=== PATIENT | female | born 1950 | race Caucasian/White ===

== ENCOUNTER 2021-10-24 17:05 | Emergency (ER) | payer MEDICARE, OTHER ==
[2021-10-24 18:59] LABS: BASO # 0.1 10*3/uL (0.0-0.1); BASO % 0.8 % (0.0-1.0); EOS # 0.2 10*3/uL (0.0-0.4); EOS % 2.4 % (1.0-4.0); HEMATOCRIT 40.9 % (37.0-47.0); LYMPH # 2.4 10*3/uL (1.3-4.4); LYMPH % 30.1 % (27.0-41.0); MEAN CORPUSCULAR HGB 29.7 pg (27.0-31.0); MEAN CORPUSCULAR HGB CONC 31.5 g/dl (33.0-37.0); MEAN PLATELET VOLUME 10.3 fl (9.6-12.3); MONO # 0.5 10*3/uL (0.1-1.0); MONO % 5.9 % (3.0-9.0); NEUT # 4.8 10*3/uL (2.3-7.9); NEUT % 60.5 % (47.0-73.0); PLATELET COUNT AUTOMATED 283 10*3/uL (130-400); RED BLOOD COUNT 4.35 10*6/uL (4.10-5.10); RED CELL DISTRI WIDTH 14.1 % (0-14.5)
[2021-10-24 19:12] LABS: ACT PARTIAL THROMBO TIME 24.9 SECONDS (20.0-32.1); INTERNATIONAL NORM RATIO 0.9 (2.0-3.5)
[2021-10-24 19:26] LABS: ALKALINE PHOSPHATASE 101 U/L (45-117); BUN 33 mg/dl (7-24); CHLORIDE 113 mmol/L (98-107); CREATININE 2.21 mg/dL (0.55-1.02); LIPASE 468 U/L (73-393); POTASSIUM 4.2 mmol/L (3.5-5.1); SGOT/AST 19 IU/L (3-35); SGPT/ALT 24 U/L (12-78); SODIUM 143 mmol/L (136-145); TOTAL PROTEIN 7.8 gm/dL (6.4-8.2)
[2021-10-24 19:27] LABS: ETHYL ALCOHOL < 3.0 mg/dl (<3)
[2021-10-24 20:46] LABS: BILIRUBIN Negative (Negative); BLOOD Negative (Negative); CLARITY Clear (Clear); COLOR Yellow (Yellow); GLUCOSE Negative (Negative); KETONE Negative (Negative); LEUKO ESTERASE Negative (Negative); NITRITE Negative (Negative); SPECIFIC GRAVITY <= 1.005 (1.001-1.030); UROBILINOGEN 0.2 E.U./dl (0.0-1.0)
[2021-10-24 20:55] LABS: URINE AMPHETAMINES < 1000 (1000ng/ml); URINE BARBITURATES < 200 (200ng/ml); URINE BENZODIAZEPINES < 200 (200ng/ml); URINE CANNABINOIDS (THC) < 50 (50ng/ml); URINE COCAINE < 300 (300ng/ml); URINE METHADONE < 300 (300ng/ml); URINE OPIATES < 300 (300ng/ml)
[2021-10-24 20:56] LABS: URINE PHENCYCLIDINE < 25 (25ng/ml)
[2021-10-24] MEDS ORDERED: ANUSOL-HC25 MG R (20:57)
[2021-10-24] MEDS ORDERED: ABILIFY5 MG PO (20:58)
[2021-10-24] MEDS ORDERED: LAMICTAL100 MG PO (20:58)
[2021-10-24] MEDS ORDERED: LEVOTHYROXINE25 MCG PO (21:00)
[2021-10-24] MEDS ORDERED: MIRALAX17 GM PO (21:01)
[2021-10-24] MEDS ORDERED: MELATONIN5 M7 PO (21:01)
[2021-10-24] MEDS ORDERED: REMERON15 M2 PO (21:01)
[2021-10-24] MEDS ORDERED: SENNA-S 8.6-501 EACH PO (21:02)
[2021-10-24] MEDS ORDERED: TOPAMAX25 M3 PO (21:03)
[2021-10-24 21:04] LABS: BACTERIA TRACE; EPITHELIAL CELLS 0-2; WBC 0-2 wbc/hpf (0-5)
== END 2021-10-24 21:04 | disposition admitted as inpatient to this hospital (09) ==
LOC: ED 17:05
PROVIDERS: Emergency Medicine
DX: F03.90 Unspecified dementia, unspecified severity, without behavioral disturbance, psychotic disturbance, mood disturbance, and anxiety (principal); Z20.822 Contact with and (suspected) exposure to COVID-19; R45.1 Restlessness and agitation; Z88.0 Allergy status to penicillin

== ENCOUNTER 2021-10-24 18:40 | Inpatient (IN) | payer MEDICARE, OTHER ==
[~2021-10-24] VITALS: Ht 157.4 cm; Wt 36.0 kg
[2021-10-24] MEDS ORDERED: ANUSOL-HC25 MG R (20:57)
[2021-10-24] MEDS ORDERED: ABILIFY5 MG PO (20:58)
[2021-10-24] MEDS ORDERED: LAMICTAL100 MG PO (20:58)
[2021-10-24] MEDS ORDERED: LEVOTHYROXINE25 MCG PO (21:00)
[2021-10-24] MEDS ORDERED: REMERON15 M2 PO (21:01)
[2021-10-24] MEDS ORDERED: MIRALAX17 GM PO (21:01)
[2021-10-24] MEDS ORDERED: MELATONIN5 M7 PO (21:01)
[2021-10-24] MEDS ORDERED: SENNA-S 8.6-501 EACH PO (21:02)
[2021-10-24] MEDS ORDERED: TOPAMAX25 M3 PO (21:03)
[2021-10-24 21:36] VITALS: BP 148/53
[2021-10-25 06:26] LABS: BASO # 0.1 10*3/uL (0.0-0.1); BASO % 0.9 % (0.0-1.0); EOS # 0.2 10*3/uL (0.0-0.4); EOS % 2.6 % (1.0-4.0); HEMATOCRIT 39.6 % (37.0-47.0); LYMPH # 1.5 10*3/uL (1.3-4.4); LYMPH % 25.7 % (27.0-41.0); MEAN CELL VOLUME 92.7 fl (81.0-99.0); MEAN CORPUSCULAR HGB 29.5 pg (27.0-31.0); MEAN CORPUSCULAR HGB CONC 31.8 g/dl (33.0-37.0); MONO # 0.3 10*3/uL (0.1-1.0); MONO % 5.7 % (3.0-9.0); NEUT # 3.8 10*3/uL (2.3-7.9); NEUT % 64.9 % (47.0-73.0); PLATELET COUNT AUTOMATED 255 10*3/uL (130-400); RED BLOOD COUNT 4.27 10*6/uL (4.10-5.10); RED CELL DISTRI WIDTH 14.2 % (0-14.5); WHITE BLOOD COUNT 5.8 10*3/uL (4.8-10.8)
[2021-10-25 06:43] LABS: CREATININE 2.21 mg/dL (0.55-1.02); POTASSIUM 4.2 mmol/L (3.5-5.1); TOTAL PROTEIN 7.3 gm/dL (6.4-8.2)
[2021-10-25 06:51] LABS: THYROID STIM HORMONE (HS) 2.9 uIU/ml (0.358-4.75)
[2021-10-25 08:00] LABS: VITAMIN D, 25-HYDROXY 24.4 ng/mL (30-100)
[2021-10-25 08:13] VITALS: BP 147/79
[2021-10-25 16:00] VITALS: BP 147/79
[2021-10-25 20:00] VITALS: BP 141/82
[2021-10-26 07:18] VITALS: BP 132/77
[2021-10-26 19:29] VITALS: BP 122/70
[2021-10-27 06:36] LABS: CREATININE 2.47 mg/dL (0.55-1.02); POTASSIUM 4.7 mmol/L (3.5-5.1)
[2021-10-27 06:58] VITALS: BP 134/76
[2021-10-27 19:33] VITALS: BP 112/59
[2021-10-28 06:06] LABS: CREATININE 2.43 mg/dL (0.55-1.02); POTASSIUM 4.6 mmol/L (3.5-5.1)
[2021-10-28 08:00] VITALS: BP 123/75
[2021-10-28 19:50] VITALS: BP 117/65
[2021-10-29 06:38] LABS: BASO # 0.1 10*3/uL (0.0-0.1); BASO % 0.6 % (0.0-1.0); EOS # 0.2 10*3/uL (0.0-0.4); EOS % 2.3 % (1.0-4.0); HEMATOCRIT 35.2 % (37.0-47.0); LYMPH # 2.2 10*3/uL (1.3-4.4); LYMPH % 28.3 % (27.0-41.0); MEAN CELL VOLUME 94.6 fl (81.0-99.0); MEAN CORPUSCULAR HGB 30.1 pg (27.0-31.0); MEAN CORPUSCULAR HGB CONC 31.8 g/dl (33.0-37.0); MEAN PLATELET VOLUME 10.6 fl (9.6-12.3); MONO # 0.6 10*3/uL (0.1-1.0); NEUT # 4.9 10*3/uL (2.3-7.9); NEUT % 61.5 % (47.0-73.0); PLATELET COUNT AUTOMATED 227 10*3/uL (130-400); RED BLOOD COUNT 3.72 10*6/uL (4.10-5.10); RED CELL DISTRI WIDTH 13.7 % (0-14.5); WHITE BLOOD COUNT 7.9 10*3/uL (4.8-10.8)
[2021-10-29 06:40] LABS: CREATININE 2.26 mg/dL (0.55-1.02); POTASSIUM 4.6 mmol/L (3.5-5.1)
[2021-10-29 07:07] VITALS: BP 114/61
[2021-10-29 19:03] VITALS: BP 124/70
[2021-10-30 08:00] VITALS: BP 143/77
[2021-10-30 20:00] VITALS: BP 143/77
[2021-10-31 07:34] VITALS: BP 158/73
[2021-10-31 19:12] VITALS: BP 129/63
[2021-11-01 06:28] LABS: CREATININE 2.67 mg/dL (0.55-1.02); POTASSIUM 4.9 mmol/L (3.5-5.1)
[2021-11-01 08:38] VITALS: BP 136/65
[2021-11-01 20:00] VITALS: BP 141/66
[2021-11-02 06:09] LABS: CREATININE 2.32 mg/dL (0.55-1.02); POTASSIUM 4.5 mmol/L (3.5-5.1)
[2021-11-02 07:09] VITALS: BP 146/60
[2021-11-02 20:00] VITALS: BP 137/62
[2021-11-03 07:24] VITALS: BP 158/88
[2021-11-03 20:00] VITALS: BP 148/60
[2021-11-04 08:00] VITALS: BP 148/74
[2021-11-04 20:16] VITALS: BP 120/50
[2021-11-04] MEDS ORDERED: DRONABINOL2.5 MG PO (22:33)
[2021-11-04] MEDS ORDERED: ORAZINC50 MG PO (22:34)
[2021-11-04] MEDS ORDERED: ZYPREXA5 M1 PO (22:35)
[2021-11-04] MEDS ORDERED: PAMELOR50 MG PO (22:35)
[2021-11-04] MEDS ORDERED: VITAMIN D3125 MCG PO (22:36)
[2021-11-06] MEDS ORDERED: DRONABINOL2.5 MG PO (09:30)
== END 2021-11-04 10:30 | disposition short-term general hospital (02) | DRG 885 ==
LOC: 3N 18:40
PROVIDERS: Family Medicine; Internal Medicine; Registered Nurse; Student in an Organized Health Care Education/Training Program; ADMIT Psychiatry & Neurology Psychiatry; ATTEND Psychiatry & Neurology Psychiatry
PROC: 0HBRXZZ Excision of Toe Nail, External Approach (ICD-10-PCS; principal; 2021-10-31)
PROC: 0HBRXZZ Excision of Toe Nail, External Approach (ICD-10-PCS; 2021-10-31)
PROC: 0HBRXZZ Excision of Toe Nail, External Approach (ICD-10-PCS; 2021-10-31)
PROC: 0HBRXZZ Excision of Toe Nail, External Approach (ICD-10-PCS; 2021-10-31)
PROC: 0HBRXZZ Excision of Toe Nail, External Approach (ICD-10-PCS; 2021-10-31)
PROC: 0HBRXZZ Excision of Toe Nail, External Approach (ICD-10-PCS; 2021-10-31)
PROC: 0HBRXZZ Excision of Toe Nail, External Approach (ICD-10-PCS; 2021-10-31)
PROC: 0HBRXZZ Excision of Toe Nail, External Approach (ICD-10-PCS; 2021-10-31)
PROC: 0HBRXZZ Excision of Toe Nail, External Approach (ICD-10-PCS; 2021-10-31)
PROC: 0HBRXZZ Excision of Toe Nail, External Approach (ICD-10-PCS; 2021-10-31)
DX: F31.30 Bipolar disorder, current episode depressed, mild or moderate severity, unspecified (principal); E43 Unspecified severe protein-calorie malnutrition; F50.9 Eating disorder, unspecified; N17.0 Acute kidney failure with tubular necrosis; N18.4 Chronic kidney disease, stage 4 (severe); F03.91 Unspecified dementia, unspecified severity, with behavioral disturbance; Z68.1 Body mass index [BMI] 19.9 or less, adult; E87.0 Hyperosmolality and hypernatremia; E03.9 Hypothyroidism, unspecified; F41.9 Anxiety disorder, unspecified; E78.5 Hyperlipidemia, unspecified; R13.10 Dysphagia, unspecified; E83.41 Hypermagnesemia; E87.8 Other disorders of electrolyte and fluid balance, not elsewhere classified; G47.00 Insomnia, unspecified; R62.7 Adult failure to thrive; R73.9 Hyperglycemia, unspecified; B35.1 Tinea unguium; Z88.0 Allergy status to penicillin